=== PATIENT | female | born 1980 | race Caucasian/White ===

== ENCOUNTER 2016-11-12 19:49 | Emergency (ER) | payer OTHER ==
[~2016-11-12] VITALS: Ht 152.4 cm; Wt 79.4 kg
[~2016-11-12 19:49] MED LIST: AMOXICILLIN500 M2 PO; AUGMENTIN 875875 MG PO; BACTRIM DS 8001 TA1 PO; BACTROBAN CREAM15 GM T; BLOOD PRESSURE; BUSPAR5 MG PO; CEPHALEXIN500 M1 PO; CLARITIN10 MG PO; COMPAZINE10 MG PO; DUONEB 3 MG/3 ML3 M1 INH; HYCODAN,HYDROME10 ML PO; HYDROCODONE BIT1 T11 PO; KEFLEX500 MG PO; LITHIUM CARBON600 MG PO; NAPROSYN500 MG PO; OMNICEF300 MG PO; PERCOCET 325 MG1 TA2 PO; PHENERGAN25 MG RC; PREDNISONE10 MG PO; PREDNISONE20 M1 PO; PREDNISONE20 MG PO; PYRIDIUM200 M1 PO; ROBITUSSIN DM 105 ML PO; TOBREX OPHTH S2.5 ML OPH; ULTRAM50 MG PO; VENTOLIN H0.09 MG/AC INH; ZANTAC150 MG PO; ZITHROMAX TRI-500 M1 PO; ZITHROMAX Z PA250 MG PO; ZITHROMAX250 MG PO; ZOVIRAX800 MG PO
[2016-11-12] MEDS ORDERED: ZITHROMAX250 MG PO (20:32)
[2016-11-12] MEDS ORDERED: MEDROL DOSEPAK4 MG PO (20:32)
[2016-11-12] MEDS ORDERED: ALBUTEROL2.5 MG/0.5 INH (20:32)
== END 2016-11-12 20:11 | disposition home or self-care (01) ==
LOC: ED 19:49
DX: J40 Bronchitis, not specified as acute or chronic (principal); J45.909 Unspecified asthma, uncomplicated; F17.200 Nicotine dependence, unspecified, uncomplicated; Z91.013 Allergy to seafood; Z88.8 Allergy status to other drugs, medicaments and biological substances; Z79.899 Other long term (current) drug therapy

== ENCOUNTER 2016-12-17 14:09 | Emergency (ER) | payer OTHER ==
[~2016-12-17] VITALS: Ht 152.4 cm; Wt 77.1 kg
[~2016-12-17 14:09] MED LIST changes: +ALBUTEROL2.5 MG/0.5 INH; +MEDROL DOSEPAK4 MG PO
[2016-12-17] MEDS ORDERED: MEDROL DOSEPAK4 MG PO (15:44)
[2016-12-17] MEDS ORDERED: AMOXICILLIN500 M2 PO (15:44)
== END 2016-12-17 15:48 | disposition home or self-care (01) ==
LOC: ED 14:09
DX: J06.9 Acute upper respiratory infection, unspecified (principal); J45.901 Unspecified asthma with (acute) exacerbation; K08.89 Other specified disorders of teeth and supporting structures; F17.200 Nicotine dependence, unspecified, uncomplicated; Z90.49 Acquired absence of other specified parts of digestive tract; Z88.8 Allergy status to other drugs, medicaments and biological substances; Z91.013 Allergy to seafood

== ENCOUNTER → 2017-02-06 | Outpatient (CLI) | payer OTHER | END | disposition home or self-care (01) | LOC: RESCLI 03:52 | DX: M54.42 Lumbago with sciatica, left side (principal); G89.29 Other chronic pain; J45.909 Unspecified asthma, uncomplicated; E66.9 Obesity, unspecified; Z72.0 Tobacco use ==

== ENCOUNTER 2023-05-09 11:06 | Emergency (ER) | payer MEDICAID ==
[~2023-05-09] VITALS: Ht 152.4 cm; Wt 87.1 kg
[2023-05-09 11:54] LABS: BASO # 0.1 10*3/uL (0.0-0.1); BASO % 0.3 % (0.0-1.0); EOS # 0.6 10*3/uL (0.0-0.4); EOS % 3.6 % (1.0-4.0); HEMATOCRIT 40.9 % (37.0-47.0); LYMPH # 4.8 10*3/uL (1.3-4.4); LYMPH % 30.6 % (27.0-41.0); MEAN CELL VOLUME 103.8 fl (81.0-99.0); MEAN CORPUSCULAR HGB 34.8 pg (27.0-31.0); MEAN CORPUSCULAR HGB CONC 33.5 g/dl (33.0-37.0); MEAN PLATELET VOLUME 10.8 fl (9.6-12.3); MONO # 0.7 10*3/uL (0.1-1.0); MONO % 4.2 % (3.0-9.0); NEUT # 9.4 10*3/uL (2.3-7.9); NEUT % 60.7 % (47.0-73.0); PLATELET COUNT AUTOMATED 233 10*3/uL (130-400); RED BLOOD COUNT 3.94 10*6/uL (4.10-5.10); RED CELL DISTRI WIDTH 12.9 % (0-14.5); WHITE BLOOD COUNT 15.6 10*3/uL (4.8-10.8)
[2023-05-09 12:05] LABS: INTERNATIONAL NORM RATIO 0.9 (2.0-3.5)
[2023-05-09 12:19] LABS: ALKALINE PHOSPHATASE 124 U/L (46-116); BUN 11 mg/dl (9-23); CHLORIDE 108 mmol/L (98-107); LIPASE 30 U/L (12-53); SGPT/ALT 70 U/L (10-49); TOTAL PROTEIN 7.1 gm/dL (6.0-8.0)
[2023-05-09] MEDS ORDERED: PREDNISONE10 M1 PO (12:53)
[2023-05-09] MEDS ORDERED: AMOX-CLAV 875-1 EACH PO (12:53)
== END 2023-05-09 13:38 | disposition home or self-care (01) ==
LOC: ED 11:06
PROVIDERS: Internal Medicine
DX: J44.1 Chronic obstructive pulmonary disease with (acute) exacerbation (principal); J18.9 Pneumonia, unspecified organism; J45.909 Unspecified asthma, uncomplicated; I10 Essential (primary) hypertension; F41.9 Anxiety disorder, unspecified; F31.9 Bipolar disorder, unspecified; G43.909 Migraine, unspecified, not intractable, without status migrainosus; Z91.041 Radiographic dye allergy status; Z88.8 Allergy status to other drugs, medicaments and biological substances; Z91.013 Allergy to seafood; Z98.51 Tubal ligation status; Z98.890 Other specified postprocedural states; F17.290 Nicotine dependence, other tobacco product, uncomplicated

== ENCOUNTER 2023-06-08 14:52 | Emergency (ER) | payer MEDICAID ==
[~2023-06-08] VITALS: Ht 165.1 cm; Wt 83.0 kg
[~2023-06-08 14:52] MED LIST changes: +AMOX-CLAV 875-1 EACH PO; +PREDNISONE10 M1 PO
[2023-06-08] MEDS ORDERED: VIBRAMYCIN100 MG PO (15:27)
== END 2023-06-08 15:36 | disposition home or self-care (01) ==
LOC: ED 14:52
DX: A69.20 Lyme disease, unspecified (principal); I10 Essential (primary) hypertension; F41.9 Anxiety disorder, unspecified; F31.9 Bipolar disorder, unspecified; G43.909 Migraine, unspecified, not intractable, without status migrainosus; Z88.8 Allergy status to other drugs, medicaments and biological substances; J44.9 Chronic obstructive pulmonary disease, unspecified; Z98.51 Tubal ligation status; Z98.890 Other specified postprocedural states

== ENCOUNTER 2023-08-03 00:21 | Emergency (ER) | payer MEDICARE ==
[~2023-08-03] VITALS: Ht 165.1 cm; Wt 81.6 kg
[~2023-08-03 00:21] MED LIST changes: +VIBRAMYCIN100 MG PO
[2023-08-03 00:37] LABS: HEMATOCRIT 44.6 % (37.0-47.0); MEAN CELL VOLUME 101.4 fl (81.0-99.0); MEAN CORPUSCULAR HGB 33.6 pg (27.0-31.0); MEAN CORPUSCULAR HGB CONC 33.2 g/dl (33.0-37.0); MEAN PLATELET VOLUME 10.7 fl (9.6-12.3); PLATELET COUNT AUTOMATED 276 10*3/uL (130-400); RED CELL DISTRI WIDTH 12.1 % (0-14.5); WHITE BLOOD COUNT 16.5 10*3/uL (4.8-10.8)
[2023-08-03 00:42] LABS: MANUAL DIFF REFLEX YES
[2023-08-03 00:58] LABS: ALKALINE PHOSPHATASE 133 U/L (46-116); BUN 12 mg/dl (9-23); CHLORIDE 106 mmol/L (98-107); ETHYL ALCOHOL 207.1 mg/dl (<3); POTASSIUM 3.7 mmol/L (3.4-5.1); SGPT/ALT 112 U/L (5-49); TOTAL PROTEIN 7.7 gm/dL (6.0-8.0)
[2023-08-03 01:05] LABS: ATYPICAL LYMPHS 6 % (0-0); PLATELET SUFFICIENCY NORMAL (NORMAL); TOTAL CELLS COUNTED 100 #CELLS
== END 2023-08-03 02:59 | disposition home or self-care (01) ==
LOC: ED 00:21
PROVIDERS: Internal Medicine
DX: F10.129 Alcohol abuse with intoxication, unspecified (principal); R79.89 Other specified abnormal findings of blood chemistry; D72.829 Elevated white blood cell count, unspecified; D75.89 Other specified diseases of blood and blood-forming organs; J45.909 Unspecified asthma, uncomplicated; I10 Essential (primary) hypertension; F41.9 Anxiety disorder, unspecified; F31.9 Bipolar disorder, unspecified; G43.909 Migraine, unspecified, not intractable, without status migrainosus; Z88.8 Allergy status to other drugs, medicaments and biological substances; Z98.51 Tubal ligation status; Z98.890 Other specified postprocedural states; Y90.0 Blood alcohol level of less than 20 mg/100 ml; Z79.899 Other long term (current) drug therapy